=== PATIENT | male | born 1990 | race Hispanic/Latino ===

== ENCOUNTER 2017-07-29 19:49 | Emergency (ER) | payer OTHER ==
[~2017-07-29] VITALS: Ht 167.6 cm; Wt 83.5 kg
[~2017-07-29 19:49] MED LIST: ADVAIR 250-501 EACH IH; ADVAIR 250/501 DISK IH; ALBUTEROL SULF8.5 GM IH; ALBUTEROL17 G1 IH; FISH OIL 1,0001 EA10 PO; IBUPROFEN200 M1 PO; MEN'S MULTI-VI1 EACH PO
[2017-07-29 21:09] VITALS: BP 127/81
== END 2017-07-29 21:10 | disposition home or self-care (01) ==
LOC: EME 19:49
DX: S01.81XA Laceration without foreign body of other part of head, initial encounter (principal); W22.01XA Walked into wall, initial encounter; Y92.69 Other specified industrial and construction area as the place of occurrence of the external cause; Y99.0 Civilian activity done for income or pay
CPT/HCPCS: 99281; 99284